=== PATIENT | female | born 1990 | race Caucasian/White ===

== ENCOUNTER 2024-10-13 12:56 | Emergency (ER) | payer SELFPAY ==
[2024-10-13 12:58] VITALS: BP 172/88
--- NOTE | 2024-10-13 13:04 | ED.GENMED ---
ED Provider Triage
<Deann Mitchell PA-C - Last Filed: 10/13/24 13:06>
-
Patient seen by provider in Triage?: Seen in Triage
Attestation: A medical screening examination has been initiated by a qualified medical provider. Based on the assessment performed at this time, it has been determined that an emergent medical condition may exist and the patient has been informed
that further medical evaluation and possible additional diagnostic testing may be needed.
HPI: 34yoF here after a 'panic attack' while at the grocery store. [place] like her heart was racing and became lightheaded. From [place], in the area visiting her family. Recently seen at an ED in [place] for pain during early . HCG levels were
down to 50s at one point but then increased to 120s. There was concern for a possible ectopic but they weren't able to see anything. C/o 'twinges' in abdomen. No vaginal bleeding.
GENERAL: Alert , in no apparent distress
EYE: No visual abnormalities.
NECK: Trachea midline
ENT: No visible abnormalities.
LUNGS: No acute respiratory distress
NEUROLOGICAL: Alert and oriented
SKIN: Skin intact. No visible changes.
MUSCULOSKELETAL: Moving extremities normally
PSYCH: Normal and appropriate interaction.
This is a medical evaluation conducted in person to initiate diagnostic evaluation and provide initial therapeutics. Please see further documentation by the treating clinician.
Cardiac labs, quantitative HCG, EKG, and pelvic ultrasound ordered.
History of Present Illness
<Deann Mitchell PA-C - Last Filed: 10/13/24 13:06>
General
Chief Complaint: Problems
Time Seen by Provider: 10/13/24 16:23
<Dinora Walton PA-C - Last Filed: 10/14/24 12:53>
General
Source: patient
Exam Limitations: none
Nursing documentation reviewed up to this point in time: agreed with
History of Present Illness
History of Present Illness:
Patient is a 34y.o female at approximately 4 weeks gestation who presents to the emergency department for evaluation of abnormally rising hCG levels and palpitations earlier today. Patient states that she was experiencing palpitations and
feeling of a �panic attack� while grocery shopping earlier today. She reports feeling that her heart was racing as well as a coolness of her palms. Patient reports that these symptoms have completely resolved by the time of my evaluation.
Patient also notes that she has been following with an [facility] in [place], [place], Dr. Pete trending her HCG values as they have been rising inappropriately and there is concern for an ectopic .
Patient states her first at home positive was September 27. Her hCG levels are as followed, 09/30/24 - 150, 10/02/24- 138, 10/04/24- 58, 10/09/24 - 160, and 10/11/24 - 148.
She apparently is scheduled for a repeat lab work and an ultrasound this week with her OBGYN. She is currently in town visiting.
Patient denies any vaginal bleeding. She has no current abdominal/pelvic pain. She denies any lightheadedness, dizziness, or syncopal episodes.
Review of Systems
<Dinora Walton PA-C - Last Filed: 10/14/24 12:53>
Review of Systems
Allergies reviewed?: Yes
All Other Systems: ROS reviewed and negative except as documented in HPI and ROS
Phy Exam
<Dinora Walton PA-C - Last Filed: 10/14/24 12:53>
Physical Exam
Physical Exam:
Vitals: Hypertensive and mildly tachycardic on arrival, improved by my assessment. Afebrile
General: Patient is well appearing, no acute distress
Skin: Warm and dry, no rashes or lesions
Head: Normocephalic, atraumatic
Eyes: Sclera nonicteric.
Throat: Protecting airway
Neck: Normal ROM, no cervical spine tenderness, no meningismus.
Cardiac: Regular rate and rhythm, no murmurs.
Pulm: Normal respiratory effort, no wheezes, rales, rhonchi heard on exam
.
Abdomen: Abdomen soft and nontender. No palpable masses.
Extremities: No evidence of cyanosis or edema
Neuro: AAOx3. Grossly intact
Psychiatric: Normal affect.
Course
<Deann Mitchell PA-C - Last Filed: 10/13/24 13:06>
Orders/Labs/Results
Orders:
Orders
10/13/24 13:03
Electrocardiogram (*1) Urgent
Reason for Study: Palpitations
EKG- Treatment ONCE
1st Trimester US [US 1st Trimester] Urgent
Comment:
Reason For Exam: lower abd pain, early
10/13/24 13:18
Complete Blood Count/With Diff Urgent
Comprehensive Metabolic Panel Urgent
HCG, Beta Quantitative [Beta HCG Quantitative] Urgent
Is this a screen?: No
TSH Reflex To Free T4 Urgent
Comment: ADD ON
Troponin I Urgent
10/13/24 17:11
Add On- LAB Urgent
Tests Added?: TSH w/ reflex to T4
Abnormal Lab Results
10/13/24
13:18
WBC 11.7 H 10^3/uL
(4.8-10.8)
MCV 80.9 L fL
(81.0-99.0)
MCH 26.7 L pg
(27.0-31.0)
Abs Immat Gran (auto) 0.1 H 10^3/uL
(0-0.05)
Absolute Neuts (auto) 7.6 H 10^3/uL
(1.4-6.5)
Glucose 126 H mg/dl
(70-99)
10/13/24 13:18
10/13/24 13:18
Vital Signs
Initial and Last Documented VS:
Initial Vital Signs
Temp Pulse Resp BP Pulse Ox
98.3 F 104 20 172/88 98
10/13/24 12:58 10/13/24 12:58 10/13/24 12:58 10/13/24 12:58 10/13/24 12:58
Last Documented Vital Signs
Temp Pulse Resp BP Pulse Ox
98.5 F 96 16 120/72 99
10/13/24 16:52 10/13/24 16:52 10/13/24 16:52 10/13/24 16:52 10/13/24 16:52
<Dinora Walton PA-C - Last Filed: 10/14/24 12:53>
Orders/Labs/Results
Orders:
Orders
10/13/24 13:03
Electrocardiogram (*1) Urgent
Reason for Study: Palpitations
EKG- Treatment ONCE
1st Trimester US [US 1st Trimester] Urgent
Comment:
Reason For Exam: lower abd pain, early
10/13/24 13:18
Complete Blood Count/With Diff Urgent
Comprehensive Metabolic Panel Urgent
HCG, Beta Quantitative [Beta HCG Quantitative] Urgent
Is this a screen?: No
TSH Reflex To Free T4 Urgent
Comment: ADD ON
Troponin I Urgent
10/13/24 17:11
Add On- LAB Urgent
Tests Added?: TSH w/ reflex to T4
Abnormal Lab Results
10/13/24
13:18
WBC 11.7 H 10^3/uL
(4.8-10.8)
MCV 80.9 L fL
(81.0-99.0)
MCH 26.7 L pg
(27.0-31.0)
Abs Immat Gran (auto) 0.1 H 10^3/uL
(0-0.05)
Absolute Neuts (auto) 7.6 H 10^3/uL
(1.4-6.5)
Glucose 126 H mg/dl
(70-99)
10/13/24 13:18
10/13/24 13:18
Vital Signs
Initial and Last Documented VS:
Initial Vital Signs
Temp Pulse Resp BP Pulse Ox
98.3 F 104 20 172/88 98
10/13/24 12:58 10/13/24 12:58 10/13/24 12:58 10/13/24 12:58 10/13/24 12:58
Last Documented Vital Signs
Temp Pulse Resp BP Pulse Ox
98.5 F 96 16 120/72 99
10/13/24 16:52 10/13/24 16:52 10/13/24 16:52 10/13/24 16:52 10/13/24 16:52
Information
Weeks gestation: Weeks: (Unknown )
Location: Location: (Unknown)
<Dinora Walton PA-C - Last Filed: 10/14/24 12:53>
MDM/Problems Addressed
Differential Diagnosis Includes:
Not limited to: Acute dehydration, cardiac arrhythmia, hyperthyroidism, threatened , ectopic , missed , molar , etc.
MDM/Problems Addressed:
34-year-old female presenting with concerns of panic attack earlier today as well as abnormally rising hCG levels in setting of early . Follows with OBGYN near home in [place]. No vaginal bleeding or abdominal pain. Palpitations have
resolved.
Patient mildly tachycardic and hypertensive on arrival. However, improved by my assessment. Physical exam as above.
Symptoms reported earlier consistent with panic attack however improved without intervention. TSH within normal limits. Labs obtained with very mild leukocytosis. Chemistry unremarkable. Beta hCG of 174.23. Ultrasound unfortunately reveals no
evidence of intrauterine .
In comparison to prior HGG values � these levels are not rising appropriately. Given no evidence of intrauterine with abnormally rising hCG levels � there would be concern for ectopic. However no abnormal masses specifically noted on US
today.
At this point� impression is of unknown location. She has no vaginal bleeding or abdominal pain at this time. She will require serial HCG levels and ultrasounds. Feel this will be better served by patient�s home J[employer] COUN[employer]. She has been in
close contact with them during this and will contact them on Tuesday. Very strict return precautions discussed. Patient comfortable with plan.
Chronic conditions affecting care:
PCOS
Acute Exacerbation and/or Progression of Chronic Illness:
N/A
<Deann Mitchell PA-C - Last Filed: 10/13/24 13:06>
*Pulse Oximetry
SaO2: 98
Oxygen Mode of Delivery: Room air
<Dinora Wlaton PA-C - Last Filed: 10/14/24 12:53>
*Radiology
Radiology exam reviewed: radiology read reviewed
*Pulse Oximetry
Patient hypoxic: no
*EKG
Interpreted by ED Provider?: Yes
EKG Intrepretation Date: 10/13/24
Interpretation: abnormal
Heart Rate: 105
Rate: tachycardiac
Rhythm: sinus
[place]: normal axis
Interval: normal QT interval
QRS Pattern: right bundle branch block
Ischemia: non-specific ST changes
*Automatic Profile Sander Operator Interpretation
Rate: Automatic Profile Sander Operator- N/A
*Critical Care Note
Total Time (30-74mins, 75-104mins- exclusive of procedures): Not Applicable
Data Reviewed
Review of Other/Old Records Reveals: Labs (Prior outpatient hCG levels)
ED Attending Note
<Deann Mitchell PA-C - Last Filed: 10/13/24 13:06>
-
Portions of this chart may have been created with voice recognition software.� Occasional wrong word or��sound alike� substitutions may have occurred due to the inherent limitations of voice recognition software.
Discharge Plan
Departure
Patient Disposition: Home (Routine Discharge)
Date of Disposition: 10/13/24
Time of Disposition: 17:18
Patient with high blood pressure during this ER visit?: Yes
Condition: Good
Discharge Problem:
, location unknown
Instructions: Threatened Miscarriage (DC), BLOOD PRESSURE
Prescriptions:
No Action
No Current Medications
0
Activity Restrictions/Additional Instructions:
RETURN TO THE EMERGENCY DEPARTMENT WITH ANY FEVER, CHILLS, LIGHTHEADEDNESS/DIZZINESS, EPISODES OF FAINTING, ABDOMINAL PAIN, VAGINAL BLEEDING, WORSENING OF CURRENT SYMPTOMS, OR ANY OTHER CONCERNS
- As discussed that your hCG level today was 174.23. Unfortunately�your ultrasound showed no evidence of an intrauterine .
- At this point�you have a of an unknown location. There is still concern for a possible ectopic . You will need continued repeat lab work, ultrasound with your JOB COUNSELOR to continue to monitor this. Please follow-up with them on
Tuesday morning for further evaluation.
Monitor your symptoms closely return to the emergency department with any acute worsening/new symptoms or any other concerns
Interventions
Interventions:
*Risk Screen - Suicide Last Done: 10/13/24 12:58
*General Assessment Last Done: 10/13/24 12:58
*Neglect/Abuse Screening Last Done: 10/13/24 16:52
*ED- Fall Risk Assessment Last Done: 10/13/24 16:52
*ED COVID-19 Vaccine History Last Done: 10/13/24 16:52
*Nursing Disposition Last Done: 10/13/24 17:35
ED-Female Genitourinary Assessment Last Done: 10/13/24 16:52
Discharge Date and Time
Discharge Date/Time: 10/13/24 17:55
Print Language: ITALIAN
[2024-10-13 13:26] LABS: Hematocrit 39.7 % (37.0-47.0); Hemoglobin 13.1 g/dL (12.0-16.0); Mean Corp Hgb Conc. 33.0 g/dL (33.0-37.0); Mean Corpuscular Volume 80.9 fL (81.0-99.0); Nucleated Red Blood Cells % 0 %; Platelet Count 307 10^3/uL (130-400); Red Cell Dist. Width 13.6 % (11.5-14.5)
[2024-10-13 13:41] LABS: ALT (SGPT) 26 U/L (0-35); AST (SGOT) 23 U/L (14-36); Albumin 4.9 g/dl (3.5-5.0); Alkaline Phosphatase 46 U/L (38-126); Blood Urea Nitrogen 10 mg/dl (7-17); Calcium 10.2 mg/dl (8.4-10.2); Carbon Dioxide 23 mmol/L (22-30); Chloride 106 mmol/L (98-107); Glucose 126 mg/dl (70-99); Potassium 4.1 mmol/L (3.5-5.1); Sodium 138 mmol/L (135-145); Total Protein 7.3 g/dl (6.3-8.2); eGFR > 60.00
[2024-10-13 13:52] LABS: Troponin I < 0.012 ng/ml
[2024-10-13 13:57] LABS: Beta HCG Quantitative 174.23 mIU/ml
[2024-10-13 16:42] VITALS: BP 120/72
[2024-10-13 16:52] VITALS: BP 120/72; BMI 25.1
== END 2024-10-13 17:55 | disposition home or self-care (01) ==
LOC: EMR 12:56
PROVIDERS: Physician Assistant; EMERGENCY PHYSICIAN Emergency Medicine
DX: O26.891 Other specified pregnancy related conditions, first trimester (principal); E28.2 Polycystic ovarian syndrome; Z3A.01 Less than 8 weeks gestation of pregnancy
CPT/HCPCS: 99285; 76801; 80053; 84443; 84484; 84702; 85025; 93005